=== PATIENT | male | born 1995 | race Caucasian/White ===

== ENCOUNTER 2025-09-17 03:53 | Emergency (ER) | payer OTHER, SELFPAY ==
[2025-09-17 04:02] VITALS: BP 103/61; PULSE 73; RESP 20; TEMP 36.4; O2SAT 97
--- NOTE | 2025-09-17 04:06 | ED.WOUNDLAC ---
HPI - Wound/Laceration General Chief Complaint: Wound/Laceration Stated Complaint: laceration Time Seen by Provider: 09/17/25 04:02 Source: patient and family Mode of arrival: ambulatory Limitations: no limitations History of Present Illness HPI narrative: This is a 30-year-old male with no significant past medical history who presents to the ED for laceration. 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 He is unsure if he passed out. He notes that he had eaten a healing for several hours. He does occasionally get lightheaded. He was seen evaluated by EMS and was notified that he would need stitches but did not want to go by EMS to the ED. reports symptoms at this time except for some mild pain over the laceration to his left brow. He is on a blood thinners. Unsure of last tetanus shot but believes it was probably in high school. Related Data Allergies Allergy/AdvReac Type Severity Reaction Status Date / Time No Known Allergies Allergy Unverified 05/10/15 06:49 Review of Systems Review of Systems: Gen.: Denies fevers or chills Eyes: Denies eye pain or visual change ENT: Denies congestion Respiratory: Denies shortness of breath or cough CV: Denies chest pain or palpitations GI: Denies abdominal pain nausea, emesis or diarrhea denies burning, urgency, frequency or hematuria Musculoskeletal: Denies back pain or muscle pain Neuro: Denies numbness, tingling, weakness or focal weakness Skin: As per HPI Except as documented, all other systems reviewed and negative Exam Narrative: APPEARANCE: No acute distress, nontoxic, resting in bed HEENT: Normocephalic, atraumatic, OMM RESPIRATORY: No respiratory distress CARDIOVASCULAR: Appears well perfused ABDOMINAL: Nondistended MUSCULOSKELETAl: Moves all extremities. No obvious deformities NEURO: Awake and alert. SKIN:: Warm, dry. 2 cm laceration to the left eyebrow, bleeding controlled. PSYCHIATRIC: Normal affect/mood, Course Vital Signs Vital signs: Vital Signs Temperature 97.6 F 09/17/25 04:02 Pulse Rate 73 09/17/25 04:02 Respiratory Rate 20 09/17/25 04:02 Blood Pressure 103/61 09/17/25 04:02 Pulse Oximetry 97 09/17/25 04:02 Oxygen Delivery Room Air 09/17/25 04:02 Temperature 97.6 F 09/17/25 04:02 Pulse Rate 73 09/17/25 04:02 Respiratory Rate 20 09/17/25 04:02 Blood Pressure 103/61 09/17/25 04:02 Pulse Oximetry 97 09/17/25 04:02 Oxygen Delivery Room Air 09/17/25 04:02 Procedures Laceration Laceration 1: Date: 09/17/25 Time: 04:30 Site: face Side (If applicable): left Size (cm): 2 Description: linear Local Anesthetic: lidocaine 1% Amount of anesthesia used (mL): 4 Pre-repair: wound explored and irrigated ====== Skin Level ====== Skin layer closed with: prolene Size (cm): 5-0 Number of sutures: 5 Technique: simple, interrupted ====== Subcutaneous Layer ====== Subcutaneous layer closed with: chromic gut Size: 5-0 Number of sutures: 1 Technique: other (Horizontal mattress) ====== Muscle Layer ====== ====== Tendon Layer ====== MDM - Wound/Laceration MDM Narrative Medical decision making narrative: 30-year-old male presenting for laceration fall. On initial evaluation, patient was in acute distress, afebrile hemodynamically stable. He had a 2 cm laceration to his left brow with bleeding controlled. No neurologic deficits. No other injuries. Laceration repaired as above, patient tolerated procedure well. He was advised follow-up with his PCP or with any ED for re-evaluation and suture removal in the next week. Patient was agreeable to this plan. Given strict return precautions. Differential Diagnosis Differential diagnosis: Likely laceration, abrasion and avulsion of skin Discharge Plan Discharge Clinical Impression: Laceration Patient Disposition: Home Condition: Stable Instructions: Antibiotic Form, Care For Your Stitches (ED), Laceration (ED) Additional Instructions: Follow-up with your PCP in the next week for re-evaluation and suture removal. Alternatively, he may return to any ED or urgent care for suture removal. Apply ice to the area for swelling. You may take Tylenol and ibuprofen for ear pain. Patient Language: Portuguese Follow-up/Referrals: Luli Harris MD [Physician, Pediatrics]
[2025-09-17 04:11] VITALS: BP 103/61; O2SAT 99
[2025-09-17] MEDS: TETANUS,DIPHTHERIA,AC PERTUSSIS ADULT (0.5 ML) BOOSTRIX IM (04:18)
[2025-09-17 04:31] VITALS: BP 122/65; O2SAT 97
--- OUTSIDE RECORDS SUMMARY | 2025-09-17 04:57 | XMS_ITS | Clinical Summary ---
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 Gender Identity Not on file Sexual Orientation Not on file Plan of Treatment Health Maintenance Due Date Last Done Comments Hepatitis C Virus (HCV) Screening 1996 TdaP Immunization 1996 Influenza Immunization (#1) 2025 SARS-COV-2 Immunization ( season) 2025 Respiratory Syncytial Virus (RSV) Immunization (Adult) (1 - 1-dose 75+ series) 02/02/2071 Hepatitis B Immunization Completed 996, 1996, 1996 DTaP/Tdap/Td Immunization Discontinued 2000, 06/06/1997, 1996, Additional history exists Meningococcal Immunization (ACWY) Completed 06/30/2014 Human Papillomavirus (HPV) Immunization Completed 01/02/2015, 09/08/2014, 06/30/2014 Pneumococcal Immunization Combined Aged Out No longer eligible based on patient's age to complete this topic Rotavirus Immunization Aged Out No lo nger eligible based on patient's age to complete this topic
--- OUTSIDE RECORDS SUMMARY | 2025-09-17 04:57 | XMS_ITS | Clinical Summary ---
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 Phone Unavailable Primary Care Provider Unavailabl e Social History Tobacco Use Types Packs/Day Years Used Date Smoking Tobacco: Never Assessed Sex and Gender Information Value Date Recorded Sex Assigned at Not on file Legal Sex Male 6:50 PM CDT Gender Identity Not on file Sexual Orientation Not on file Plan of Treatment Health Maintenance Due Date Last Done Comments Hepatitis B Vaccines (2 of 3 - 3-dose series) 1996 1996 Annual Physical 02/02/1999 Hepatitis C 02/02/2014 DTaP, Tdap and Td Vaccines ( 1 - Tdap) 02/02/2015 HPV Vaccines (1 - 3-dose SCD M series) 02/02/2023 COVID-19 Vaccine (2024-2 6 season) 2025 Influenza Adult (#1) 2025 Hepatitis A Vaccines Aged Out No long er eligible based on patient's age to complete this topic Meningococcal B Vaccine Aged Out No l onger eligible based on patient's age to complete this topic Meningococcal Vaccine Aged Out No kaylie august eligible based on patient's age to complete this topic Pneumococcal Vaccine: Pediat rics (0 to 5 Years) and At-Risk Patients (6 to 49 Years) Aged Out No longer eligi ble based on patient's age to complete this topic RSV Immunizations Under 20 Months Aged Out No longer eligible based on patient's age to complete this topic
[2025-09-17 05:10] VITALS: BP 122/65; PULSE 69; RESP 20; TEMP 36.7; O2SAT 100
== END 2025-09-17 05:11 | disposition home or self-care (01) ==
LOC: ANHED 04:55
PROVIDERS: Emergency Provider Student in an Organized Health Care Education/Training Program
DX: S01.112A Laceration without foreign body of left eyelid and periocular area, initial encounter (principal); W01.0XXA Fall on same level from slipping, tripping and stumbling without subsequent striking against object, initial encounter; Z23 Encounter for immunization
CPT/HCPCS: 12051; 90471; 90715; 99282